=== PATIENT | female | born 1995 | race Caucasian/White ===

== ENCOUNTER 2017-11-05 17:14 | Emergency (ER) | payer BC, OTHER ==
--- OUTSIDE RECORDS SUMMARY | 2017-11-05 17:22 | XMS REPORT ---
:1995 External Reference #:[id number] Author Organization [employer] Address [address] [address] Phone [phone] Care Team Providers Name Role Phone [facility] Primary Care Physician Unavailable Payers Type Date Identification Numbers Payment Provider Subscriber Health Maintenance Policy Number: [facility] [place] [id number] PayID: [id number] [address] [address] [place] [address] Commercial Onset: 07/31/2016 Policy Number: [employer] Carla Saleh [id number] Service Group Number: [facility] [employer] [address] Group Name: [employer] [address] PayID: [id number] [place] [address] Problems Date Description Provider Status Onset: 10/04/2016 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 Active Onset: 10/31/2017 Spasm Alvarado Carroll M.D. Active Social History Type Date Description Comments Lives With Alone Occupation Student ETOH Use Denies alcohol use Smoking Patient has never smoked Exercise Type/Frequency Exercises regularly Allergies, Adverse Reactions, Alerts Date Description Reaction Status Severity Comments 10/04/2016 Sulfa Antibiotics active 10/04/2016 Zithromax active Medications Medication Date Status Form Strength Qnty SIG Indications Ordering Provider Cyclobenzaprine 05/21 Active Tablets 10mg 30tab one tablet Alvarado s every 8 hours Carly, as needed for M.D. muscle spasm Metaxalone 05/16 Active Tablets 800mg 60tab one tab PO M25.512 s bid prn saleem Carroll M.D. pain/spasms Cymbalta Active Caps DR 60mg 1 by mouth Unknown Part every day Famotidine Active Tablets 20mg 1 by mouth Unknown twice daily Medrol 10/17 Hx Tablets 4mg 21tab take as S76.302A s directed per F - dosepak Yas 05/14 instructions Naproxen 10/17 Hx Tablets 500mg 90tab 1 by mouth S76.302A s twice a day F - as needed Yas, 05/14 pain Nortrel 1/35 Hx Tablets 1-35mg-mc Take One Unknown () g Tablet By - Mouth Every Sertraline HCL Hx Tablets 100mg Unknown / - 08/07 Omeprazole Hx Capsules 40mg Unknown / DR - 08/07 Control Hx Unknown / - 08/07 Vitamin D Hx Tablets 1000Unit once a day Unknown (Cholecalciferol / ) - 05/14 Ibuprofen 00 Hx Unknown / - 05/14 Vital Signs Date Vital Result Comment 10/31/2017 Height 67 inches 5'7" Heart Rate 87 /min BP Systolic 110 mmHg BP Diastolic 78 mmHg Respiratory Rate 20 /min Body Temperature 97.6 F Pain Level 0 08/08/2017 Height 67 inches 5'7" Weight 144.00 lb Heart Rate 74 /min BP Systolic Sitting 118 mmHg LA reg cuff BP Diastolic Sitting 84 mmHg LA reg cuff Pain Level 2 BMI (Body Mass Index) 22.6 kg/m2 06/13/2017 Height 67 inches 5'7" Weight 138.00 lb BP Systolic 110 mmHg BP Diastolic 64 mmHg Respiratory Rate 18 /min Pain Level 3 BMI (Body Mass Index) 21.6 kg/m2 05/16/2017 Height 67 inches 5'7" Weight 138.00 lb BP Systolic 104 mmHg BP Diastolic 68 mmHg Respiratory Rate 14 /min Pain Level 6 BMI (Body Mass Index) 21.6 kg/m2 10/17/2016 Height 67 inches 5'7" Weight 138.00 lb Heart Rate 72 /min BP Systolic 98 mmHg BP Diastolic 72 mmHg Respiratory Rate 18 /min Pain Level 4 BMI (Body Mass Index) 21.6 kg/m2 10/04/2016 Height 67 inches 5'7" Weight 138.00 lb Heart Rate 65 /min BP Systolic 102 mmHg BP Diastolic 68 mmHg Respiratory Rate 17 /min Body Temperature 98.1 F Pain Level 0 BMI (Body Mass Index) 21.6 kg/m2 Results Description No Information Procedures Description No Information Encounters Type Date Location Provider CPT E/M Dx Office Visit 08/08/2017 [facility] Alvarado Carroll 41618 M62.838 4:00p [facility] Office Visit 06/13/2017 [facility] Alvarado Carroll 50264 M25.512 3:45p [facility] M62.838 Office Visit 05/16/2017 10:45a [facility] Alvarado Carroll 67128 M25.512 [facility] M62.838 Office Visit 10/17/2016 9:00a [facility] Alexander Yang 75321 S76.302A [facility] S[facility] MD S76.312A Office Visit 10/04/2016 1:30p [facility] Alvarado Carroll 85962 S22.32xD [facility] Plan of Care 10/31/2017 - Alvarado Carroll M.D.M25.512 Pain in left shoulderNew Xrays:MRI Upper Extremity Left W/OFollow up:Follow up: After MRIM62.838 Other muscle spasm
--- NOTE | 2017-11-05 17:33 | UC ---
Respiratory Complaint HPI - HPI Summary HPI Summary: 21 y/o female presents to the urgent care c/o productive cough for four weeks. Pt reports she had Mononucleosis in 05/2017, then Influenza in 08/2017 and sinusitis after. She has was Tx an [facility] [facility] w/ ABx. However since 2017 she has been w/ a productive cough that has worsen in the past week. She has been taking Mucinex PO, Zyrtec PO and Afrin nasal drops to alleviate symptoms w/o any relief. Her Father was recently Dx w/ Pneumonia. She has mild SOB, and wheezing for the past 2 days. Phlegm is yellowish and cough is worse at night time. She also has RABAGO, nasal congestion and sinus pain. mPt denies fever, chest pain, dizziness, abdominal pain, N/V/D. - History of Current Complaint Stated Complaint: COUGH Time Seen by Provider: 11/05/17 17:32 Hx Obtained From: Patient Hx Last Menstrual Period: 10/17/2017 ?: No Onset/Duration: Gradual Onset, Lasting Weeks - 4 weeks, Still Present, Worse Since - last week Timing: Intermittent Episodes Severity Initially: Mild Severity Currently: Moderate Pain Intensity: 5 - RABAGO Pain Scale Used: 0-10 Numeric Character: Cough: Productive, Sputum Description: - yellowish Aggravating Factors: Recumbent Position Alleviating Factors: OTC Meds Associated Signs And Symptoms: Positive: Dyspnea, Wheezing, URI, Nasal Congestion, Sinus Discomfort. Negative: Fever, Chills Related History: Seasonal Allergies - Risk Factors Pulmonary Embolism Risk Factors: Negative Cardiac Risk Factors: Negative Pseudomonas Risk Factors: Negative Tuberculosis Risk Factors: Negative - Allergies/Home Medications Allergies/Adverse Reactions: Allergies Allergy/AdvReac Type Severity Reaction Status Date / Time azithromycin [From Zithromax] Allergy GI Upset Verified 11/05/17 17:37 Sulfa (Sulfonamide Allergy Itching Verified 11/05/17 17:37 Antibiotics) Home Medications: Home Medications Loratadine [Claritin] 10 mg PO 11/05/17 [History] guaiFENesin LIQ* [Robitussin*] 11/05/17 [History] PMH/Surg Hx/FS Hx/Imm Hx Previously Healthy: Yes Other Respiratory History: seasonal allergies - Surgical History Surgical History: Yes Surgery Procedure, Year, and Place: WISDOM TEETH. TUBES CHILD - Family History Known Family History: Positive: Diabetes - Social History Occupation: Student Lives: With Family Review of Systems Constitutional: Negative Skin: Negative Eyes: Negative ENT: Nasal Discharge, Sinus Congestion, Sinus Pain/Tenderness Respiratory: Shortness Of Breath, Cough - productive w/ yellowish phlegm, Other - wheezing Cardiovascular: Negative Gastrointestinal: Negative Genitourinary: Negative Motor: Negative Neurovascular: Negative Musculoskeletal: Negative Neurological: Headache Psychological: Negative Is Patient Immunocompromised?: No All Other Systems Reviewed And Are Negative: Yes Physical Exam - Summary Physical Exam Summary: Vital Signs Reviewed: Yes General: well developed, well nourished female sitting in the examining table w/ o any apparent distress Eyes: Positive: Conjunctiva Clear - PERRLA, EOMI, fundi grossly normal ENT: Positive: Normal ENT inspection, Hearing grossly normal, Pharynx normal, Nasal congestion - edematous and erythematous nasal mucosa, Nasal drainage - yellowish drainage, TMs normal. Negative: Tonsillar swelling, Tonsillar exudate Neck: Positive: Supple, Nontender, No Lymphadenopathy Respiratory: no orthopnea or dyspnea. Able to speak in full sentences, no retractions or accessory muscle use, no tripod position, stridor, or head bobbing. positive breath sounds bilaterally, B/L lungs w/ scattered wheezing and rhonchi, no crackles or rales. Cardiovascular: Positive: RRR, No Murmur, Pulses Normal, Brisk Capillary Refill Abdomen Description: Positive: Nontender, No Organomegaly, Soft. Negative: CVA Tenderness (R), CVA Tenderness (L) Bowel Sounds: Positive: Present Musculoskeletal Exam: Normal Musculoskeletal: Positive: Strength Intact, ROM Intact, No Edema Neurological Exam: Normal Psychological Exam: Normal Skin Exam: Normal Triage Information Reviewed: Yes Respiratory Course/Dx - Course Course Of Treatment: 21 y/o female presents to the urgent care c/o productive cough for four weeks. Pt reports she had Mononucleosis in 05/2017, then Influenza in 08/2017 and sinusitis after. She has was Tx at [facility] w/ ABx. However since 10/12/2017 she has been w/ a productive cough that has worsen in the past week. She has been taking Mucinex PO, Zyrtec PO and Afrin nasal drops to alleviate symptoms w/o any relief. Her Father was recently Dx w/ Pneumonia. She has mild SOB, and wheezing for the past 2 days. Phlegm is yellowish and cough is worse at night time. She also has RABAGO, nasal congestion and sinus pain. Pt denies fever, chest pain, dizziness, abdominal pain, N/V/D. Hx Obtained. Pt w/ b/l w/ scattered wheezing and rhonchi on examination. Chest X -ray ordered to r/o pneumonia; Impression: no cardiopulmonary disease observed. Pt given Prednisone PO and Albuterol Treatment to alleviate wheezing.O2Sat: 100% . Patient tolerated well treatment and lungs improved, mild wheezing only in posterior RT lung, O2 sat 100%. Pt azithromycin allergic. Patient prescribed Augmentin. Flonase and Prednsione taper dose as directed below. Patient recommended to return to the clinic or go to the nearest ER if symptoms do not improve or worsen. Patient understood and agree. Pt left clinic hemodynamically stable. - Differential Dx/Diagnosis Differential Diagnosis/HQI/PQRI: Asthma, Bronchitis, Influenza, Lower Resp Infection, Sinusitis, Other - pneumonia Provider Diagnoses: 1- Acute bronchitis. 2-Wheezing Discharge - Sign-Out/Discharge Documenting (check all that apply): Discharge/Admit/Transfer - D/C home - Discharge Plan Condition: Stable Disposition: HOME Prescriptions: Albuterol HFA INHALER* [Ventolin HFA Inhaler*] 1 - 2 puff INH Q4H PRN #1 mdi PRN Reason: Wheezing Amoxicillin/Clavulanate TAB* [Augmentin TAB 875*] 875 mg PO BID #20 tab Fluticasone NASAL SPRAY 50MCG* [Flonase NASAL SPRAY 50MCG*] 2 spray BOTH NARES DAILY #1 btl predniSONE TAB* [Deltasone TAB*] 20 mg PO DAILY #8 tab Patient Education Materials: Acute Bronchitis (ED), Wheezing (ED) Referrals: No Primary Care Phys,NOPCP [Primary Care Provider] - 3 Days Additional Instructions: 1-Please take full course of antibiotic to avoid resistance. Take Prednisone PO taper dose starting tomorrow, first dose givne today. 2-continue taking Mucinex PO tabs as directed and use the albuterol inhaler to alleviate cough and wheezing. Increase fluid intake, rest and eat well. 3- If symptoms do not improve or worsen or your develop SOB with fever and severe wheezing please go immediately to the ER further evaluation and treatment. 4- F/u with your PCP in 3 days for further management 5-Use Flonase as directed to help drain fluid. Also buy saline drops to clear sinuses - Billing Disposition and Condition Condition: STABLE Disposition: HOME
[2017-11-05 17:36] VITALS: BP 113/83
[2017-11-05] MEDS ORDERED: Albuterol 2.5 MG/3 ML NEB.SOL* (0.083%) INH ONE (17:54)
[2017-11-05] MEDS ORDERED: predniSONE TAB* 20 MG PO ONE (17:54)
--- NOTE | 2017-11-05 18:16 | RAD ---
Indication: Productive cough. 2 views of the chest including dual energy PA views demonstrate no mediastinal shift. Heart is of normal size and configuration. Lungs are clear. IMPRESSION: No active cardiopulmonary disease is noted.
== END 2017-11-05 18:45 | disposition home or self-care (01) ==
LOC: UCEAST 17:14
DX: R05 Cough (principal); R06.02 Shortness of breath; R06.2 Wheezing; R51 Headache; R09.81 Nasal congestion; Z88.1 Allergy status to other antibiotic agents; Z88.2 Allergy status to sulfonamides
CPT/HCPCS: 71046; 99212; G0463; J7512

== ENCOUNTER 2018-05-16 16:45 | Emergency (ER) | payer BC, OTHER ==
[2018-05-16 16:55] VITALS: BP 133/72
--- NOTE | 2018-05-16 17:31 | UC ---
Breast Complaint - HPI Summary HPI Summary: 22-year-old female presents with onset of area of erythema and tenderness to her left breast near the edge of her areola 4 days ago. States has increased in size slightly over the past 4 days. Denies fever, chills, or nipple discharge. LMP 05/11/2018. States is not sexually active. Family history maternal grandmother with breast cancer in her 30's. - History of Current Complaint Hx Obtained From: Patient Breast Chief Complaint: Palpable Lump - Area of tender erythema Onset/Duration: Started Days Ago Breast Pain Aggravating Factors: Palpation Breast Pain Alleviating Factors: Nothing Breast Associated Signs/Symptoms: Redness, Warmth - Allergy/Home Medications Allergies/Adverse Reactions: Allergies Allergy/AdvReac Type Severity Reaction Status Date / Time azithromycin [From Zithromax] Allergy GI Upset Verified 11/05/17 17:37 Sulfa (Sulfonamide Allergy Itching Verified 05/16/18 16:55 Antibiotics) Home Medications: Home Medications DULoxetine DR CAP* [Cymbalta CAP*] 30 mg PO DAILY 05/16/18 [History Confirmed ] Famotidine 10 mg PO DAILY WITH MEAL 05/16/18 [History Confirmed 05/16/18] PMH/Surg Hx/FS Hx/Imm Hx GI/ History: Gastroesophageal Reflux Psychological History: Depression - Surgical History Surgical History: Yes Surgery Procedure, Year, and Place: WISDOM TEETH. TUBES CHILD - Family History Known Family History: Positive: Diabetes Family History: Grandmother breast cancer - Social History Occupation: Student Lives: Dormitory/Roommates Alcohol Use: Weekly Substance Use Type: None Smoking Status (MU): Never Smoked Tobacco Review of Systems Constitutional: Negative Skin: Other - See HPI Respiratory: Negative Cardiovascular: Negative Gastrointestinal: Negative Is Patient Immunocompromised?: No All Other Systems Reviewed And Are Negative: Yes Physical Exam Triage Information Reviewed: Yes Appearance: Well-Appearing, No Pain Distress, Well-Nourished Vital Signs: Initial Vital Signs Temp 98.9 F 05/16/18 16:51 Pulse 80 05/16/18 16:51 Resp 18 05/16/18 16:51 BP 133/72 05/16/18 16:51 Pulse Ox 100 05/16/18 16:51 Vital Signs Reviewed: Yes Neck: Positive: Supple, Nontender, No Lymphadenopathy Respiratory: Positive: Lungs clear, Normal breath sounds, No respiratory distress Cardiovascular: Positive: RRR, No Murmur Neurological: Positive: Alert Skin: Positive: significant lesion(s) - 2 cm area of tender, firm, erythema to left breast at margin of areola. No induration or fluctuance noted. - Additional Comments Remainder of breast exam unremarkable. No lymphadenopathy, asymmetry, dimpling, or nipple discharge. Breast Pain Course/Dx - Course Course Of Treatment: 22 year old female with 4 day history of tender erythematous area to her left breast. There was a 2 cm circular area of firm, tender, erythema at the margin of her areola of the left breast but otherwise normal exam. Appears to be a superficial skin infection therefore will treat with 5 day course of cephalexin. She was referred to surgery for further evaluation and diagnostic study. Warning symptoms were reviewed with patient. Verbalizes understanding and agrees with POC. - Differential Diagnoses Differential Diagnosis/HQI/PQRI: Breast Abscess, Breast Mass, Mastitis - Diagnoses Provider Diagnoses: Cellulitis of left breast Is Visit Related: No Discharge - Sign-Out/Discharge Documenting (check all that apply): Patient Departure All imaging exams completed and their final reports reviewed: No Studies - Discharge Plan Condition: Stable Disposition: HOME Prescriptions: Cephalexin CAP* [Keflex 500 CAP*] 500 mg PO TID #15 cap Patient Education Materials: Breast Mass (ED) Referrals: No Primary Care Phys,NOPCP [Primary Care Provider] - Eleazar Vargas MD [Medical Doctor] - 5 Days (Follow up within 5 days. Call for appointment.) Additional Instructions: I suspect that the tender and red area of your breast may be from a mild infection of the skin. I will start you on an antibiotic to treat this infection. Take cephalexin 500 mg 1 capsule three times a day for 5 days. Take over the counter acetaminophen (Tylenol) or ibuprofen (Advil, Motrin) as needed for pain. Follow up with Dr. Vargas, surgery, within 5 days for further evaluation. Call tomorrow for appointment. Seek immediate medical attention in the emergency room if you develop fever greater than 100.5 F, pain that is not managed with pain medication, the redness spreads, you have increased swelling, discharge from your nipple, or any worsening of symptoms. - Billing Disposition and Condition Condition: STABLE Disposition: Home - Attestation Statements Provider Attestation: Per institutional requirements, I have reviewed the chart, however, I was not consulted specifically or made aware of this patient by the midlevel provider. I did not personally evaluate, interact with , or disposition this patient.
== END 2018-05-16 17:38 | disposition home or self-care (01) ==
LOC: UCEAST 16:45
DX: N61.0 Mastitis without abscess (principal); K21.9 Gastro-esophageal reflux disease without esophagitis; F32.9 Major depressive disorder, single episode, unspecified; Z88.1 Allergy status to other antibiotic agents; Z88.2 Allergy status to sulfonamides
CPT/HCPCS: 99212; G0463

== ENCOUNTER 2018-08-15 18:16 | Emergency (ER) | payer BC, OTHER ==
[2018-08-15 18:22] VITALS: BP 124/82
--- NOTE | 2018-08-15 18:35 | UC ---
Throat Pain/Nasal Alexey HPI - HPI Summary HPI Summary: 22-year-old woman comes in with a chief complaint of sore throat runny nose and feeling ill for 5 days. Patient's boyfriend has the same symptoms and he has been diagnosed with strep throat. Pain is worse when she swallows is not as bad she doesn't swallow. No cough or chest congestion. No abdominal pain. - History of Current Complaint Chief Complaint: UCRespiratory Stated Complaint: THROAT PAIN Time Seen by Provider: 08/15/18 18:26 Hx Last Menstrual Period: NOW Pain Intensity: 6 - Allergies/Home Medications Allergies/Adverse Reactions: Allergies Allergy/AdvReac Type Severity Reaction Status Date / Time azithromycin [From Zithromax] Allergy GI Upset Verified 08/15/18 18:22 Sulfa (Sulfonamide Allergy Itching Verified 08/15/18 18:22 Antibiotics) Home Medications: Home Medications ARIPiprazole TAB* [Abilify TAB*] 5 mg PO DAILY 08/15/18 [History Confirmed ] Omeprazole 40 mg PO DAILY 08/15/18 [History Confirmed 08/15/18] Spironolactone TAB* [Aldactone TAB*] 100 mg PO DAILY 08/15/18 [History Confirmed 08/15/18] PMH/Surg Hx/FS Hx/Imm Hx Previously Healthy: Yes - Surgical History Surgical History: Yes Surgery Procedure, Year, and Place: WISDOM TEETH. EAR TUBES CHILD - Family History Known Family History: Positive: Diabetes Family History: Grandmother breast cancer - Social History Alcohol Use: Occasionally Substance Use Type: None Smoking Status (MU): Never Smoked Tobacco Review of Systems All Other Systems Reviewed And Are Negative: Yes Constitutional: Positive: Negative Skin: Positive: Negative Eyes: Positive: Negative ENT: Positive: Sore Throat, Nasal Discharge, Sinus Congestion Respiratory: Positive: Negative Cardiovascular: Positive: Negative Gastrointestinal: Positive: Negative Genitourinary: Positive: Negative Motor: Positive: Negative Neurovascular: Positive: Negative Musculoskeletal: Positive: Negative Neurological: Positive: Negative Psychological: Positive: Negative Is Patient Immunocompromised?: No Physical Exam Triage Information Reviewed: Yes Appearance: No Pain Distress, Well-Nourished, Ill-Appearing - MILD Vital Signs: Initial Vital Signs Temp 97.6 F 08/15/18 18:19 Pulse 90 08/15/18 18:19 Resp 16 08/15/18 18:19 BP 124/82 08/15/18 18:19 Pulse Ox 100 08/15/18 18:19 Vital Signs Reviewed: Yes Eye Exam: Normal Eyes: Positive: Conjunctiva Clear ENT: Positive: Pharyngeal erythema, Nasal congestion, Nasal drainage, Uvula midline. Negative: Tonsillar exudate Neck exam: Normal Neck: Positive: Supple Respiratory: Positive: Lungs clear, Normal breath sounds, No respiratory distress Cardiovascular: Positive: RRR Musculoskeletal Exam: Normal Musculoskeletal: Positive: Strength Intact, ROM Intact Neurological Exam: Normal Neurological: Positive: Alert, Muscle Tone Normal Psychological Exam: Normal Psychological: Positive: Age Appropriate Behavior Skin Exam: Normal Throat Pain/Nasal Course/Dx - Course Course Of Treatment: Given that the patient's boyfriend with the same symptoms has been diagnosed with strep throat we will treat for presumed strep throat. Discussed antibiotic treatment with the patient and she prefers to be on antibiotics at this time. - Differential Dx/Diagnosis Provider Diagnosis: Pharyngitis Discharge - Sign-Out/Discharge Documenting (check all that apply): Patient Departure All imaging exams completed and their final reports reviewed: No Studies - Discharge Plan Condition: Stable Disposition: HOME Prescriptions: Amoxicillin PO (*) [Amoxicillin 875 MG (*)] 875 mg PO BID #20 tab Patient Education Materials: Pharyngitis (ED) Referrals: [facility] [Provider Group] Additional Instructions: FOLLOW UP WITH YOUR DOCTOR IF NOT COMPLETELY IMPROVED. GET RECHECKED SOONER WITH ANY WORSENING OF YOUR CONDITION OR QUESTIONS OR CONCERNS. - Billing Disposition and Condition Condition: STABLE Disposition: Home
== END 2018-08-15 18:43 | disposition home or self-care (01) ==
LOC: UCEAST 18:16
DX: J02.9 Acute pharyngitis, unspecified (principal); Z88.1 Allergy status to other antibiotic agents; Z88.2 Allergy status to sulfonamides
CPT/HCPCS: 99212; G0463

== ENCOUNTER 2018-10-24 21:42 | Emergency (ER) | payer BC, OTHER ==
[2018-10-24 21:52] VITALS: BP 114/63
--- NOTE | 2018-10-24 22:11 | UC ---
Nausea/Vomiting/Diarrhea HPI - HPI Summary HPI Summary: Ms. Saleh has had about two episodes of watery diarrhea every day for 5 days since returning from the [place]. She has mild cramping before the episodes but not real pain. No one else who was with her is sick. She has had no fevers, nausea or vomiting. - History of Current Complaint Chief Complaint: UCGI Stated Complaint: ABDOMINAL PAIN, AND DIARRHEA Time Seen by Provider: 10/24/18 21:57 Hx Obtained From: Patient Hx Last Menstrual Period: LAST WEEK SEPTEMBER Onset/Duration: Gradual Onset Timing: Intermittent Episodes Lasting: Severity Initially: Mild Severity Currently: Mild Pain Intensity: 2 Character: Cramping Aggravating Factor(s): Food Alleviating Factor(s): Nothing Nausea/Vomiting Presence: None Diarrhea Presence: Yes Diarrhea Frequency: Daily - BID Diarrhea Characteristics: Watery - No Blood - Allergies/Home Medications Allergies/Adverse Reactions: Allergies Allergy/AdvReac Type Severity Reaction Status Date / Time azithromycin [From Zithromax] Allergy GI Upset Verified 10/24/18 21:52 Sulfa (Sulfonamide Allergy Itching Verified 10/24/18 21:52 Antibiotics) PMH/Surg Hx/FS Hx/Imm Hx Previously Healthy: Yes - Surgical History Surgical History: Yes Surgery Procedure, Year, and Place: WISDOM TEETH. EAR TUBES CHILD - Family History Known Family History: Positive: Diabetes Family History: Grandmother breast cancer - Social History Alcohol Use: Occasionally Substance Use Type: None Smoking Status (MU): Never Smoked Tobacco Review of Systems All Other Systems Reviewed And Are Negative: Yes Gastrointestinal: Positive: Diarrhea Genitourinary: Positive: Negative Physical Exam - Summary Physical Exam Summary: She is non-toxic in appearance with stable vitals. Triage Information Reviewed: Yes Appearance: Well-Appearing Vital Signs: Initial Vital Signs Temp 97.7 F 10/24/18 21:47 Pulse 71 10/24/18 21:47 Resp 16 10/24/18 21:47 BP 114/63 10/24/18 21:47 Pulse Ox 100 10/24/18 21:47 Vital Signs Reviewed: Yes ENT Exam: Normal Respiratory Exam: Normal Cardiovascular Exam: Normal Abdominal Exam: Normal Bowel Sounds: Positive: Present Skin Exam: Normal Naus/Vom/Diarrhea Course/Dx - Course Course Of Treatment: We sent a stool sample and I am hesitant to treat until we see the result as her symptoms are minimal. - Differential Dx/Diagnosis Provider Diagnosis: Diarrhea Discharge - Sign-Out/Discharge Documenting (check all that apply): Patient Departure All imaging exams completed and their final reports reviewed: No Studies - Discharge Plan Condition: Stable Disposition: HOME Patient Education Materials: Traveler's Diarrhea (ED) Referrals: No Primary Care Phys,NOPCP [Primary Care Provider] - - Billing Disposition and Condition Condition: STABLE Disposition: Home
--- NOTE | 2018-10-26 21:48 | UC ---
- Progress Note Progress Note: Patient's stool fecal lactoferrin comes back positive. Patient to call for results and nursing discussed with the patient how she is feeling. Overall the patient's continued to have diarrhea and not feeling well. Has no fevers. Stool cultures pending. Because he is not improving and because of her recent travel we discussed the use of antibiotics and the patient prefers to start antibiotics at this time. Because the patient's on Cymbalta which does have potential interactions with Cipro will treat with Levaquin 500 milligrams by mouth daily for 3 days and Flagyl 500 mg by mouth twice a day for 3 days. Patient if she does not improve she needs to reevaluated. Stool cultures pending. We discussed if she did not improve than a gastroenterology follow-up was a potential. Course/Dx - Diagnoses Provider Diagnoses: Diarrhea Discharge - Sign-Out/Discharge Documenting (check all that apply): Patient Departure All imaging exams completed and their final reports reviewed: No Studies - Discharge Plan Condition: Stable Disposition: HOME Prescriptions: Levofloxacin TAB* [Levaquin TAB*] 500 mg PO DAILY #3 tab Loperamide CAP* [Imodium CAP*] 2 mg PO Q4H PRN #10 cap PRN Reason: Diarrhea metroNIDAZOLE [Flagyl] 500 mg PO BID #6 tablet Patient Education Materials: Traveler's Diarrhea (ED) Referrals: No Primary Care Phys,NOPCP [Primary Care Provider] - - Billing Disposition and Condition Condition: STABLE Disposition: Home
== END 2018-10-24 22:30 | disposition home or self-care (01) ==
LOC: UCEAST 21:42
DX: R19.7 Diarrhea, unspecified (principal); R19.5 Other fecal abnormalities; Z88.1 Allergy status to other antibiotic agents; Z88.2 Allergy status to sulfonamides
CPT/HCPCS: 99202; G0463